=== PATIENT | male | born 1945 ===

== ENCOUNTER 2024-08-22 08:58 | Day surgery (SDC) | payer MEDICARE ==
[2024-08-22] VITALS (9 sets, daily range): BP systolic 115–137; BP diastolic 54–65
[~2024-08-22] VITALS: Ht 175.3 cm; Wt 80.1 kg
[~2024-08-22 08:58] MED LIST: ATOR10 PO; DHA FROM ALGAE200 MG PO; GABA300 PO; LISI20 PO; METF500 PO; OMEP20ER PO; PIOG30 PO; SILD50TA PO; TRULICITY3 MG/0.5 M SQ
[2024-08-22] MEDS ORDERED: Heparin Sodium 1000 Units/ML 10ML MDV ONE (09:39)
[2024-08-22] MEDS ORDERED: NS 500 ML IV ONE (09:39)
[2024-08-22] MEDS ORDERED: NS 1,000 ML IV ONE ×2 (09:39→09:43)
[2024-08-22] MEDS ORDERED: Nitroglycerin 2 MG/20 ML BTL ONE (09:39)
[2024-08-22] MEDS ORDERED: Midazolam HCl 1MG / ML 2ML Vial ONE ×2 (09:43→09:56)
[2024-08-22] MEDS ORDERED: FentaNYL Citrate 50 MCG/ML 2 ML Injection ONE (09:43)
--- NOTE | 2024-08-22 10:55 | NUR ---
PATIENT ARRIVED TO RECOVERY ROOM WITH HOB FLAT. LEFT GROIN SITE C/D/I SOFT/NONTENDER, NO EVIDENCE OF HEMATOMA. RIGHT LEG DOPPLER PULSES PRESENT. VSS ON RA. PATIENT CONVERSING APPROPRIATELY.
--- NOTE | 2024-08-22 11:16 | NUR ---
MD PRESENT AT BEDSIDE DISCUSSING PROCEDURE RESULTS. FAMILY ALSO PRESENT AT BEDSIDE, ALL QUESTIONS WERE ANSWERED.
--- NOTE | 2024-08-22 12:05 | NUR ---
HOB ELEVATED 30 DEGREES. LEFT GROIN SITE C/D/I SOFT/NONTENDER, NO EVIDENCE OF BLEEDING. VSS ON RA. PATIENT VOIDING 400 ML OF CLEAR YELLOW URINE USING URINAL. PATIENT TOLERATING PO INTAKE WELL.
--- NOTE | 2024-08-22 13:10 | NUR ---
PT AND S/O VERBALIZES UNDERSTANDING WRITTEN AND VERBAL INSTRUCTIONS,. DENIES QUESTIONS. PT DRESSES SELF WITHOUT DIFF. VSS. NADN. PT L FEMORAL SITE REMAINS C/D/I. NO BLEEDING NOTED. PT IV DC'D. CATH INTACT. PRESSURE DSG APPLIED. PT DC TO HOME VIA WC BY FAMILY.
== END 2024-08-22 13:10 | disposition home or self-care (01) ==
LOC: MHTC 08:58
DX: E11.51 Type 2 diabetes mellitus with diabetic peripheral angiopathy without gangrene (principal); I70.221 Atherosclerosis of native arteries of extremities with rest pain, right leg; I12.9 Hypertensive chronic kidney disease with stage 1 through stage 4 chronic kidney disease, or unspecified chronic kidney disease; E11.22 Type 2 diabetes mellitus with diabetic chronic kidney disease; N18.32 Chronic kidney disease, stage 3b; E11.42 Type 2 diabetes mellitus with diabetic polyneuropathy; Z87.891 Personal history of nicotine dependence; Z79.84 Long term (current) use of oral hypoglycemic drugs; Z79.899 Other long term (current) drug therapy
CPT/HCPCS: 37224; 37228; 75625; 75716; 75774; 76937; 93005; 93010; 99152; 99153; C1725; C1760; C1769; C1887; C1894; C2623; J1644; J2250; J3010; J7030; J7050; Q9967

== ENCOUNTER 2024-09-12 10:25 | Day surgery (SDC) | payer MEDICARE ==
[~2024-09-12] VITALS: Ht 175.3 cm; Wt 176.0 kg
[2024-09-12] VITALS (9 sets, daily range): BP systolic 121–168; BP diastolic 57–92
[2024-09-12] MEDS ORDERED: NS 1,000 ML IV ONE ×2 (13:09→13:44)
[2024-09-12] MEDS ORDERED: NS 250 ML IV ONE (13:09)
[2024-09-12] MEDS ORDERED: Heparin Sodium 1000 Units/ML 10ML MDV ONE (13:09)
[2024-09-12] MEDS ORDERED: Nitroglycerin 2 MG/20 ML BTL ONE (13:20)
[2024-09-12] MEDS ORDERED: Midazolam HCl 1MG / ML 2ML Vial ONE (13:43)
[2024-09-12] MEDS ORDERED: FentaNYL Citrate 50 MCG/ML 2 ML Injection ONE ×2 (13:44→14:48)
[2024-09-12] MEDS ORDERED: NS 100 ML IV ONE (14:21)
--- NOTE | 2024-09-12 15:33 | NUR ---
PT BACK TO RECOVERY ROOM. PT ALERT AND ORIENTED. PT REMINDED TO KEEP HEAD DOWN AND R LEG STRAIGHT. URINAL PLACED PER REQUEST. R GROIN SOFT, SMALL HEMATOMA, NO BLEEDING.
--- NOTE | 2024-09-12 15:56 | NUR ---
ASSISTED OLY WITH PATIENT RECOVERY, URINAL EARLIER VOIDED 500 ML YELLOW URINE, COFFEE GIVEN WITH STRAW, PATIENT DRANK WELL, VSS, PENDING D/C OTHERWISE, SITE TO RIGHT GROIN INTACT WITH ANGIOSEAL, DISCUSSED PLACING STANISLAW AND OP SITE CHG DRESSING POST-OP. PATIENT DENIES NEEDS, JENNIFER AT BEDSIDE.
--- NOTE | 2024-09-12 16:20 | NUR ---
PT SITTING UP 30 DEGREES. R GROIN SITE SOFT, NON TENDER. NO BLEEDING. SPOUSE AT BEDSIDE. PT DRINKING COFFEE. DENIES FOOD.
--- NOTE | 2024-09-12 17:23 | NUR ---
PT AND SPOUSE VERBALIZE D/C INSTRUCTIONS. IV D/C CATHETER INTACT. PT DRESSED AND AMBULATES TO BR. NO BLEEDING OR HEMATOMA NOTED IN R GROIN. PT STEADY ON FEET. PT WHEELED OUT OF DEPT WHILE SPOUSE PULLS CAR AROUND.
== END 2024-09-12 17:25 | disposition home or self-care (01) ==
LOC: MHTC 10:25
DX: E11.51 Type 2 diabetes mellitus with diabetic peripheral angiopathy without gangrene (principal); I70.223 Atherosclerosis of native arteries of extremities with rest pain, bilateral legs; I12.9 Hypertensive chronic kidney disease with stage 1 through stage 4 chronic kidney disease, or unspecified chronic kidney disease; E11.22 Type 2 diabetes mellitus with diabetic chronic kidney disease; N18.32 Chronic kidney disease, stage 3b; D63.1 Anemia in chronic kidney disease; E11.42 Type 2 diabetes mellitus with diabetic polyneuropathy; Z87.891 Personal history of nicotine dependence; Z79.899 Other long term (current) drug therapy
CPT/HCPCS: 37224; 75625; 75716; 75774; 76937; 99152; 99153; C1725; C1760; C1769; C1887; C1894; C9772; J1644; J2250; J3010; J7030; J7050; Q9967